=== PATIENT | female | born 1995 | race Caucasian/White ===

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

== ENCOUNTER 2017-01-17 16:29 | Emergency (ER) | payer OTHER ==
--- NOTE | 2017-01-17 16:54 | PDOC ---
Altered Mental Status HPI - General Chief Complaint: Altered Mental Status Stated Complaint: got angry at probation and parole Date Seen by Provider: 01/17/17 Time Seen by Provider: 16:49 Source: POSITIVE: Patient, Police Exam Limitations: POSITIVE: No limitations Nurse's Notes Reviewed & Considered: Yes - History of Present Illness Initial Comments: Patient was brought in by [facility] deputies for evaluation. Patient was at her parole officers office and began to have behavior that was aggressive and paranoid. When the patient arrived she stated she did not want to live any longer but wanted to go to [facility] and not to residential. Further review of systems is unavailable because of the patient's uncooperativeness. Per the deputy she did spit on him and was very combative. Timing: REPORTS: Unknown Duration: Unknown Severity: Severe Quality: REPORTS: Other Character of AMS: REPORTS: Combative, Aggitated [employer]BS ACQUISITIONS ASSISTANT (Result in comment): No Patient Normals: REPORTS: Alert, Oriented x3 Similar Symptoms Previously: Yes Recent Care Received: REPORTS: Denies Any Prior Injuries Related to Current Complaint?: No - Patient Home Medications Home Medications: Home Medications Folic Acid 1 tab PO QD #90 tab 02/05/16 [id number] Estr/Ethin Estra [Amethia 0.15-0.03-0.01 mg Tab] 1 tab PO DAILY Lorazepam 1 tab PO PRN tab 11/17/16 Ziprasidone HCl 80 mg PO BID cap 11/17/16 Promethazine HCl [Phenergan] 25 mg PO Q6H PRN #10 tab 11/22/16 Magnesium Oxide [Magnesium] 400 mg PO QD #30 tab 11/29/16 Omeprazole 40 mg PO BID 01/17/17 - Patient Allergies Allergies/Adverse Reactions: Allergies Allergy/AdvReac Type Severity Reaction Status Date / Time acetaminophen [From Tylenol] Allergy Mild NOT Verified 01/17/17 16:42 APPLICABLE gluten Allergy NAUSEA AND Verified 01/17/17 16:42 VOMITING lactose AdvReac Mild GI UPSET Verified 01/17/17 16:42 Past Medical History - heen HEENT History: Denies History Cardiovascular History: Hyperlipidemia Respiratory History: Asthma, Home CPAP Use Additional Respiratory History: SEASONAL ASTHMA WITH SICKNESS. DOES NOT WEAR CPAP Gastrointestinal History: GERD Additional Gastrointestinal History: "EXTREMELY DELAYED DIGESTION". EARLY ONSET CELIAC. LACTOSE INTOLERANT Genitourinary History: Denies History Endocrine History: Denies History Additional Endocrine History: HX OF HYPOTHYROID BUT LABS SAY NOT NOW SO TAKEN OFF. Musculoskeletal History: Denies History Prosthesis or Implant: No Neurological History: Frequent Headaches Blood Disorders: Denies History Psychiatric History: Depression, Bi Polar Disorder, Anxiety Disorders, OCD, ADHD , PTSD Additional Psychiatric History: RAD/ODD History of Sexually Transmitted Diseases: No Cancer History: Denies History In Past Year Been Physically Harmed or Verbally Threatened: No History of MDRO: No History of Other Communicable Diseases: No Tobacco Use: Never Smoker Alcohol Use: None Substance Use Type: None Previous Surgical History: Yes Type / Date of Surgery: CHOLECYSTECTOMY Anesthesia Reactions: No Malignant Hyperthermia: No Significant Family History: Asthma, Heart disease, Cancer, Diabetes, Hypertension, Lung disease, Seizures ROS - Limitations ROS Limitations: Mental Impairment, Uncooperative (Further review of systems is unavailable because the patient's uncooperativeness.) Altered Mental Physical Exam - General Appearance General Appearance: POSITIVE: Alert, No Evidence of Trauma, Severe Distress, Uncooperative - HEENT HEENT: POSITIVE: Head Inspection Nml, Eyes Inspection Nml, Ears Inspection Nml, Nose Inspection Nml, Oral/Dental Inspect. Nml, Pharynx Inspect. Nml, PERRL, EOMI - Pupil Size Pupil Size: 4 mm: Bilateral - Neuro/Psych Neurological: POSITIVE: Denies Neuro Symptoms Cranial Nerves: POSITIVE: No Evidence of Acute CVA Cerebellar: POSITIVE: Normal As Tested Peripheral Exam: POSITIVE: No Motor Deficits, No Sensory Deficits - Neck Neck: POSITIVE: Supple, Non Tender - Respiratory Respiratory: POSITIVE: No Respiratory Distress, Breath Sounds Normal - Cardiovascular CVS: POSITIVE: Regular Rate and Rhythm, Heart Sounds Normal - Abdomen Abdomen: Soft: (All Quadrants), Normal Bowel Sounds: (All Quadrants), Denies Tenderness: (All Quadrants) - Skin Skin: POSITIVE: Normal for Race, No Rash, Warm - Extremities Extremity: Non-Tender: (All Extremities), Normal ROM: (All Extremities), Normal Inspection: (All Extremities), Pelvis Stable: (All Extremities) Altered Mental Status - Results Reviewed By Me Lab Results Reviewed: Yes Lab Results:: Laboratory Results 01/17/17 01/17/17 01/17/17 Range/Units 07:20 16:55 17:14 WBC 10.94 H (4.8-10.8) 10^3/uL RBC 4.82 (4.20-5.40) 10^6/uL Hgb 13.8 (12.0-16.0) g/dL Hct 42.1 (37.0-47.0) % MCV 87.3 (81-99) FL MCH 28.6 (27-31) PG MCHC 32.8 L (33-37) g/dL RDW Std Deviation 42.6 (39-50) fL RDW Coeff of Lisbeth 13.6 (11.5-14.5) % Plt Count 236 (140-350) 10*3/uL MPV 11.1 (7.4-12.2) FL Immature Gran % (Auto) 0.2 (0-5) % Neut % (Auto) 76.0 (50-80) % Lymph % (Auto) 16.4 (10-50) % [place] % (Auto) 7.0 (5-15) % Eos % (Auto) 0.2 (0-8) % Baso % (Auto) 0.2 (0-1) % Immature Gran # (Auto) 0.02 10*3/UL Neut # (Auto) 8.32 10*3/UL Lymph # (Auto) 1.79 10*3/uL [place] # (Auto) 0.77 (0.3-0.8) 10*3/UL Eos # (Auto) 0.02 10*3/UL Baso # (Auto) 0.02 10*3/UL WBC Morphology Comment Normal morphology (NORM) Plt Morphology Comment Normal morphology (NORM) RBC Morph Comment Normal morphology (NORM) Sodium 139 (135-145) meq/L Potassium 4.0 (3.8-5.2) meq/L Chloride 105 (98-112) meq/L Carbon Dioxide 19 L (23-33) meq/L Anion Gap 15 (5-20) BUN 10 (7-22) mg/dL Creatinine 0.9 (0.50-1.20) mg/dL Estimated GFR > 60 (>60 ml/min/1.73m(2)) BUN/Creatinine Ratio 11.11 (6-20) Glucose 91 (78-110) mg/dL Calculated Osmolality 286.0 (267-292) mOsm/kg Calcium 9.8 (8.7-10.7) mg/dL Magnesium 1.9 (1.6-2.4) mg/dL Total Bilirubin 0.7 (0.3-1.2) mg/dL AST 42 H (8-39) IU/L ALT 26 (9-52) IU/L Alkaline Phosphatase 75 (50-259) IU/L Total Protein 8.2 H (6.1-8.0) g/dL Albumin 4.5 (3.7-5.6) g/dL Globulin 3.7 (2.50-4.10) g/dL Albumin/Globulin Ratio 1.20 L (1.3-2.0) mg/g TSH 1.27 (0.2700-4.2000) uIU/mL Free T4 1.18 (0.93-1.71) ng/dL Ur Collection Type Clean catch urine U Specif Grav (Refrac) 1.018 1.018 Urine HCG, Qual Negative Urine Opiates Screen Negative (NEG) Ur Buprenorphine Negative (NEG) Ur Oxycodone Screen Negative (NEG) Urine Methadone Screen Negative (NEG) Ur Propoxyphene Screen Negative (NEG) Barbiturate Screen Negative (NEG) U Tricyclic Antidepress Negative (NEG) Phencyclidine Screen Negative (NEG) Amphetamines Screen Negative (NEG) U Methamphetamines Scrn Negative (NEG) Benzodiazepines Screen Negative (NEG) Cocaine Screen Negative (NEG) U Marijuana (THC) Screen Negative (NEG) Serum Alcohol 10 (0-10) mg/dL Hep Bs Antigen Pending Hepatitis C Ab Screen Pending HCV RNA Quant (PCR) Pending HIV 1&2 Antibody Rapid Negative (N) HIV P24 Antigen Negative (N) - Patient's Progress Pain Medication Addressed: POSITIVE: No Re-Examine Time:: 18:49 Status: POSITIVE: Improved MDM / ED Course: Patient was examined, an IV started, blood drawn and sent to the lab for studies , counselor from [facility] evaluated the patient. Assessment: patient is medically stable require no further need of medical intervention at this time. Aggressive antisocial behavior. Plan: Discharge to the custody of [facility] deputies. Antibiotics Given: No - Consult Counseled: POSITIVE: Patient, RE: Lab Results, RE: DX Patient Care Time - Estimated PCT Patient Care Time (In Minutes): 30 Vital Signs - Recent Vital Signs Vital Signs: Vital Signs (Last 8 hours) Temp Pulse Resp BP Pulse Ox 01/17/17 16:52 98.3 F 130 H 18 101/73 95 - VS Reviewed Vital Signs Reviewed: Yes Discharge Clinical Impression: Antisocial behavior Discharge Disposition: Discharged to Home Condition: Stable Follow Up With: EMILY MATA [Primary Care Provider] -
[2017-01-17] MEDS ORDERED: LORazepam 2 MG/1 ML VIAL IVP ONE (16:55)
[2017-01-17] MEDS ORDERED: diphenhydrAMINE 50 MG/1 ML VIAL IVP ONE (16:55)
[2017-01-17] MEDS ORDERED: ONDANSETRON 4 MG/2 ML VIAL IVP ONE (16:55)
[2017-01-17] MEDS ORDERED: Sodium Chloride 0.9% 1,000 ML PRIMARY IV ONE (16:55)
[2017-01-17] MEDS ORDERED: HALOPERIDOL LACTATE 5 MG/1 ML AMPULE IVP ONE (16:55)
[2017-01-17 16:58] VITALS: RESP 18; TEMP 98.3
[2017-01-17 17:36] LABS: BASOPHILS # (AUTO) 0.02 10*3/UL; BASOPHILS % (AUTO) 0.2 % (0-1); EOSINOPHILS # (AUTO) 0.02 10*3/UL; EOSINOPHILS % (AUTO) 0.2 % (0-8); HEMATOCRIT 42.1 % (37.0-47.0); HEMOGLOBIN 13.8 g/dL (12.0-16.0); LYMPHOCYTES # (AUTO) 1.79 10*3/uL; MEAN CORPUSCULAR HEMOGLOBIN 28.6 PG (27-31); MEAN CORPUSCULAR HGB CONC 32.8 g/dL (33-37); MEAN CORPUSCULAR VOLUME 87.3 FL (81-99); MEAN PLATELET VOLUME 11.1 FL (7.4-12.2); MONOCYTES # (AUTO) 0.77 10*3/UL (0.3-0.8); NEUTROPHILS # (AUTO) 8.32 10*3/UL; PLATELET MORPHOLOGY COMMENT NORMAL MORPHOLOGY (NORM); RBC MORPHOLOGY COMMENT NORMAL MORPHOLOGY (NORM); RED BLOOD COUNT 4.82 10^6/uL (4.20-5.40); WBC MORPHOLOGY COMMENT NORMAL MORPHOLOGY (NORM)
[2017-01-17 17:41] LABS: BLOOD UREA NITROGEN 10 mg/dL (7-22); BUN/CREATININE RATIO 11.11 (6-20); CALCIUM 9.8 mg/dL (8.7-10.7); EST GLOMERULAR FILTRATION > 60 (>60 ml/min/1.73m(2)); MAGNESIUM 1.9 mg/dL (1.6-2.4); SERUM ALBUMIN 4.5 g/dL (3.7-5.6)
[2017-01-17 17:52] LABS: URINE SPECIFIC GRAVITY - MAN 1.018
[2017-01-17 17:56] LABS: URINE SAMPLE TYPE CLEAN CATCH URINE; URINE SPECIFIC GRAVITY - MAN 1.018
[2017-01-17 17:57] LABS: AMPHETAMINE SCREEN NEGATIVE (NEG); CANNABINOID SCREEN,URINE NEGATIVE (NEG); COCAINE SCREEN NEGATIVE (NEG); METHADONE URINE SCREEN NEGATIVE (NEG); METHAMPHETAMINES SCREEN,URINE NEGATIVE (NEG); OPIATE SCREEN,URINE NEGATIVE (NEG)
[2017-01-17 18:04] LABS: FREE T4 (FREE THYROXINE) 1.18 ng/dL (0.93-1.71)
[2017-01-17 18:48] LABS: HIV ANTIBODY NEGATIVE (N); HIV-1 P24 ANTIGEN NEGATIVE (N)
== END 2017-01-17 18:46 ==
LOC: ER 16:29
DX: Z72.811 Adult antisocial behavior (principal); F31.9 Bipolar disorder, unspecified; F32.89 Other specified depressive episodes
CPT/HCPCS: 80053; 80305; 80320; 83735; 84439; 84443; 84703; 85025; 90791; 96374; 96375; 99283 ×2; J1200; J1630; J2060; J2405; J7030